=== PATIENT | female | born 1950 | race Caucasian/White ===

== ENCOUNTER 2019-04-13 22:41 | Emergency (ER) | payer MEDICARE, SELFPAY | END 2019-04-14 00:40 | disposition home or self-care (01) | LOC: ERS 22:41 | DX: L50.9 Urticaria, unspecified (principal); E03.9 Hypothyroidism, unspecified; I10 Essential (primary) hypertension | CPT/HCPCS: 99282 ==

== ENCOUNTER 2019-05-01 19:51 | Emergency (ER) | payer MEDICARE, OTHER ==
--- NOTE | 2019-05-01 21:13 | CT ---
NONCONTRAST CT HEAD: 05/01/19 HISTORY: Trauma. Patient tripped and fell and hit ground. COMPARISON: None available. FINDINGS: There is no evidence of a hemorrhage, acute infarction, mass effect or midline shift. Mild cerebral v olume loss is present. The ventricular system is normal in size, shape and position. The visualized p aranasal sinuses and mastoid air cells are clear. No calvarial fracture is seen. IMPRESSION: No acute intracranial abnormality is demonstrated. POS: MARIA A
--- NOTE | 2019-05-01 21:14 | RAD ---
THREE VIEWS LEFT HAND: 05/01/19 HISTORY: Trauma to left hand. FINDINGS: There is a tiny osseous density adjacent to the medial aspect of the distal radius which appears nabil icated and likely represents a tiny remote avulsion type injury. No acute fracture or dislocation is seen. 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 IMPRESSION: No acute osseous abnormality. POS: MARIA A
== END 2019-05-01 22:06 | disposition home or self-care (01) ==
LOC: ERS 19:51
DX: S02.5XXA Fracture of tooth (traumatic), initial encounter for closed fracture (principal); S01.511A Laceration without foreign body of lip, initial encounter; S00.83XA Contusion of other part of head, initial encounter; S60.222A Contusion of left hand, initial encounter; E03.9 Hypothyroidism, unspecified; I10 Essential (primary) hypertension; Z79.899 Other long term (current) drug therapy; W01.0XXA Fall on same level from slipping, tripping and stumbling without subsequent striking against object, initial encounter
CPT/HCPCS: 70450

== ENCOUNTER 2019-06-04 11:13 | Outpatient (CLI) | payer OTHER, MEDICARE ==
--- NOTE | 2019-06-04 13:22 | RAD ---
LEFT HAND 3 VIEWS: Date: 06/04/19 HISTORY: Left hand pain, fall. FINDINGS: Comparison made with exam of 05/01/19. The tiny osseous density adjacent to the medial aspect of the distal radius which appears well cortic ated and likely represents an old avulsion-type injury is again seen. No acute fracture or dislocatio n is identified. Mild osteoarthritic changes involving the DIP joints are again seen. IMPRESSION: No acute process. POS: KURT
== END 2019-06-04 11:14 | disposition home or self-care (01) ==
LOC: BICRAD 11:13
PROVIDERS: ATTEND Internal Medicine
DX: M79.642 Pain in left hand (principal)

== ENCOUNTER 2019-09-25 18:05 | Emergency (ER) | payer OTHER, MEDICARE | END 2019-09-25 21:34 | disposition home or self-care (01) | LOC: ERS 18:05 | DX: S61.211A Laceration without foreign body of left index finger without damage to nail, initial encounter (principal); I10 Essential (primary) hypertension; Z79.899 Other long term (current) drug therapy; X58.XXXA Exposure to other specified factors, initial encounter | CPT/HCPCS: 12001 ==

== ENCOUNTER 2021-06-03 21:58 | Emergency (ER) | payer OTHER, MEDICARE ==
[2021-06-03 22:56] LABS: #Lymphocytes 1.6 thou/uL (1.20-3.40); #Monocytes 0.5 thou/uL (0.11-0.59); #Neutrophils 3.9 thou/uL (1.40-6.50); %Basophils 0.2 % (0.0-1.0); %Eosinophils 0.2 % (0.0-10.0); %Lymphocytes 26.4 % (21.0-51.0); %Monocytes 8.2 % (0.0-10.0); Hemoglobin 15.4 g/dL (12.0-16.0); Mean Corpuscular HGB CONC 32.5 g/dL (32.0-36.0); Mean Corpuscular Hemoglobin 30.8 pg (27.0-31.0); Mean Corpuscular Volume 94.8 fL (78.0-98.0); Mean Platelet Volume 10.1 fL (7.4-10.4); Platelet Count 123 thou/uL (130-400); RBC Distribution Width 11.9 % (11.5-14.5); Red Blood Cell (RBC) Count 5.01 mill/uL (4.20-5.40)
[2021-06-03 23:20] LABS: ALT (SGPT) 38 U/L (8-55); AST (SGOT) 67 U/L (5-34); Albumin 3.6 g/dL (3.4-4.8); Alkaline Phosphatase 95 U/L (40-110); Anion Gap 15 mmol/L (10-20); BUN (Urea Nitrogen) 10 mg/dL (9.8-20.1); Bilirubin, Total 0.7 mg/dL (0.2-1.2); Calc. Creatinine Clearance 0 mL/min (70-130); Calcium 9.2 mg/dL (7.8-10.44); Carbon Dioxide 25 mmol/L (23-31); Chloride 102 mmol/L (98-107); Globulin 4.4 g/dL (2.4-3.5); Glucose 139 mg/dL (83-110); Potassium 4.3 mmol/L (3.5-5.1); Sodium 138 mmol/L (136-145)
[2021-06-03] MEDS ORDERED: Metoprolol Tartrate 5 MG/5 ML VIAL ONE (23:42)
[2021-06-03] MEDS ORDERED: Milk Of Magnesia 30 ML UDCUP ONE (23:42)
[2021-06-03] MEDS ORDERED: Ondansetron PF 4 MG/2 ML Vial ONE (23:49)
== END 2021-06-04 01:11 | disposition home or self-care (01) ==
LOC: ERS 21:58
DX: U07.1 COVID-19 (principal); I48.91 Unspecified atrial fibrillation; I10 Essential (primary) hypertension; E03.9 Hypothyroidism, unspecified; M19.90 Unspecified osteoarthritis, unspecified site
CPT/HCPCS: 71045; 80053; 83880; 84484; 85025; 93005; 96374; J2405